=== PATIENT | female | born 1990 | race Caucasian/White ===

== ENCOUNTER 2019-07-03 18:16 | Emergency (ER) | payer OTHER ==
[2019-07-03 18:56] LABS: RAPID STREP SCREEN Negative (Negative)
--- NOTE | 2019-07-03 19:32 | ED Physician Documentation ---
History of Present Illness - Stated complaint Stated Complaint: FLU SX - Chief complaint Chief Complaint: Fever - History obtained from History obtained from: Patient - History of Present Illness Timing: Yesterday Pain level now: 8 Improved by: nothing Worsened by: no exacerbating factors - Additonal information Additional information: c/o fever (subjective; has not taken temperature), generalized headache, sore throat, [employer] cough since yesterday. Review of Systems Constitutional: reports: Fever (subjective), Chills, Myalgias, Sweats Throat: reports: Sore throat Respiratory: reports: Cough. denies: Dyspnea GI: reports: Reviewed and negative PD PAST MEDICAL HISTORY - Past Medical History Past Medical History: No - Past Surgical History Past Surgical History: No - Present Medications Home Medications: Ambulatory Orders Medication Instructions Recorded Confirmed Oseltamivir [Tamiflu] 75 mg PO BID #9 capsule 07/03/19 - Allergies Allergies/Adverse Reactions: Allergies Allergy/AdvReac Type Severity Reaction Status Date / Time No Known Drug Allergies Allergy Verified 07/03/19 18:58 - Social History Does the pt smoke?: No Smoking Status: Never smoker Does the pt drink ETOH?: No Does the pt have substance abuse?: No - Immunizations Immunizations are current?: Yes PD ED PE NORMAL - Vitals Vital signs reviewed: Yes - General General: Alert and oriented X 3, No acute distress, Well developed/nourished - HEENT HEENT: Moist mucous membranes, Other (mild posterior oropharyngeal erythema without exudate) - Neck Neck: Supple, no meningeal sign - Respiratory Respiratory: No respiratory distress, Clear bilaterally Results - Vitals Vitals: Vital Signs - 24 hr 07/03/19 18:28 Temperature 37.6 C H Heart Rate 104 H Respiratory 16 Rate Blood Pressure 106/70 O2 Saturation 97 Oxygen O2 Source Room air - Labs Labs: Laboratory Tests 07/03/19 07/03/19 18:34 18:34 Influenza A (Rapid) POSITIVE H Influenza B (Rapid) Negative Group A Strep Rapid Negative PD MEDICAL DECISION MAKING - ED course Complexity details: reviewed results, considered differential, d/w patient ED course: negative strep but positive flu A result. Discussed options for treatment, specifically Tamiflu. I explained the CDC criteria for patients who should be started on tamiflu due to increased risk of complications, and that she does not meet any of these criteria. I also explained that the medication is offered, though not specifically recommended, if symptoms started with 48 hours. She wishes to start tamiflu (symptoms started yesterday) Departure - Departure Disposition: 01 Home, Self Care Clinical Impression: Influenza A Condition: Good Instructions: ED Flu, Medication: Tamiflu (Oseltamivir) Prescriptions: Oseltamivir [Tamiflu] 75 mg PO BID #9 capsule Forms: Activity restrictions
[2019-07-03] MEDS ORDERED: OSELTAMIVIR 75 MG CAPSULE PO STA (19:45)
[2019-07-03 20:11] VITALS: BP 110/68
== END 2019-07-03 20:11 | disposition home or self-care (01) ==
LOC: ED 18:16
DX: J10.1 Influenza due to other identified influenza virus with other respiratory manifestations (principal)
CPT/HCPCS: 87070; 87077; 87275; 87276; 87430; 99283; A9270

== ENCOUNTER 2020-03-01 17:10 | Outpatient (CLI) | payer OTHER ==
[2020-03-01 18:31] LABS: BASOPHILS # (AUTO) 0.1 10^3/uL (0.0-0.1); BASOPHILS % (AUTO) 0.5 %; EOSINOPHILS # (AUTO) 0.1 10^3/uL (0.0-0.7); EOSINOPHILS % (AUTO) 0.7 %; HGB - HEMOGLOBIN 13.2 g/dL (12.0-16.0); LYMPHOCYTES # (AUTO) 3.2 10^3/uL (1.5-3.5); LYMPHOCYTES % (AUTO) 31.2 %; MEAN CORPUSCULAR HEMOGLOBIN 29.5 pg (27.0-31.0); MEAN CORPUSCULAR HGB CONC 32.8 g/dL (32.0-36.0); MEAN PLATELET VOLUME 9.9 fL (7.9-10.8); NEUTROPHILS # (AUTO) 5.9 10^3/uL (1.5-6.6); NEUTROPHILS % (AUTO) 57.3 %; PLT - PLATELET COUNT 369 10^3/uL (130-450); RED BLOOD COUNT 4.48 10^6/uL (4.20-5.40); RED CELL DISTRIBUTION WIDTH 12.2 % (12.0-15.0); WHITE BLOOD COUNT 10.3 x10^3/uL (4.8-10.8)
[2020-03-01 18:53] LABS: ALBUMIN 4.4 g/dL (3.2-5.5); ALBUMIN/GLOBULIN RATIO 1.3 (1.0-2.2); BILIRUBIN,TOTAL 0.2 mg/dL (0.2-1.0); CALCIUM 9.3 mg/dL (8.5-10.3); CREATININE 0.6 mg/dL (0.4-1.0); TOTAL PROTEIN 7.8 g/dL (6.7-8.2)
== END 2020-03-01 17:11 | disposition home or self-care (01) ==
LOC: LAB.WCP 17:10
PROVIDERS: ATTEND Nurse Practitioner Family
DX: R63.5 Abnormal weight gain (principal); R53.83 Other fatigue
CPT/HCPCS: 36415; 80053; 84443; 85025

== ENCOUNTER 2020-11-30 19:40 | Emergency (ER) | payer OTHER ==
[2020-11-30 19:58] VITALS: BP 122/86
--- NOTE | 2020-11-30 20:36 | ED Physician Documentation ---
History of Present Illness - Stated complaint Stated Complaint: LT BREAST PX/INJ - Chief complaint Chief Complaint: General - History obtained from History obtained from: Patient, Family - History of Present Illness Timing: Yesterday Pain level max: 3 Pain level now: 3 - Additonal information Additional information: Patient was moving a box at her house when it fell striking her in the left breast. She states that the left breast appears different to her now. Does have bilateral breast implants in place. Concerned about potential rupture. Minimal pain. No swelling. Nothing makes it better or worse The breast implant is a saline implant. Review of Systems Ten Systems: 10 systems reviewed and negative Constitutional: denies: Fever, Chills Nose: denies: Rhinorrhea / runny nose, Congestion GI: denies: Vomiting, Diarrhea Skin: denies: Rash Musculoskeletal: denies: Neck pain, Back pain Neurologic: denies: Headache PD PAST MEDICAL HISTORY - Past Medical History Past Medical History: No - Past Surgical History Past Surgical History: No - Present Medications Home Medications: Ambulatory Orders Medication Instructions Recorded Confirmed Oseltamivir [Tamiflu] 75 mg PO BID #9 capsule 07/03/19 - Allergies Allergies/Adverse Reactions: Allergies Allergy/AdvReac Type Severity Reaction Status Date / Time No Known Drug Allergies Allergy Verified 11/30/20 19:58 - Social History Does the pt smoke?: No Smoking Status: Never smoker Does the pt drink ETOH?: No Does the pt have substance abuse?: No - Immunizations Immunizations are current?: Yes PD ED PE NORMAL - Vitals Vital signs reviewed: Yes - General General: Alert and oriented X 3, No acute distress - HEENT HEENT: Moist mucous membranes - Neck Neck: Supple, no meningeal sign - Cardiac Cardiac: RRR - Respiratory Respiratory: No respiratory distress, Clear bilaterally - Derm Derm: Warm and dry - Neuro Neuro: Alert and oriented X 3 - Free text exam Free text exam: Mild asymmetry of the breast, right is slightly around her than the left. No skin changes. No dimpling. No redness. No bruising Results - Vitals Vitals: Vital Signs - 24 hr 11/30/20 11/30/20 19:54 20:07 Temperature 36 C L 36.2 C L Heart Rate 88 88 Respiratory 12 12 Rate Blood Pressure 122/86 H 122/86 H O2 Saturation 100 100 Oxygen O2 Source Room air - Rads (name of study) CT chest Radiology: Final report received, EMP read contemporaneously, See rad report (L breast implant rupture. no other acute abnormality.) PD MEDICAL DECISION MAKING - ED course Complexity details: reviewed results, re-evaluated patient, considered differential, d/w patient, d/w family ED course: Patient with a ruptured left breast implant. Saline implant. Had her original surgery in [facility]. Recommend that she follow-up with the plastic surgeon for removal of the implant sac and to discuss reimplantation of a new implant. Patient and family counseled regarding signs and symptoms for which I believe and urgent re-evaluation would be necessary. Patient with good understanding of and agreement to plan and is comfortable going home at this time This document was made in part using voice recognition software. While efforts are made to proofread this document, sound alike and grammatical errors may occur. Departure - Departure Disposition: 01 Home, Self Care Clinical Impression: Rupture of implant of left breast Qualifiers: Encounter type: initial encounter Qualified Code(s): T85.43XA - Leakage of breast prosthesis and implant, initial encounter Condition: Good Instructions: Breast Implants Care After Follow-Up: your,doctor in 1 week. [Other] Comments: You have ruptured your left breast implant. You will need to follow-up closely with a plastic surgeon to have this removed and a new implant implanted. Return if you worsen. There are several plastic surgeons that can do this work in [place]/ . You can also look in [place].
--- NOTE | 2020-11-30 22:04 | CT Report ---
PROCEDURE: CHEST WO INDICATIONS: L breast pain trauma to chest wall, hx implant TECHNIQUE: Noncontrast images were acquired from the pulmonary apices to the posterior costophrenic angles. Mul tiplanar MIP reformats were then acquired. For radiation dose reduction, the following was used: au tomated exposure control, adjustment of mA and/or kV according to patient size. COMPARISON: None FINDINGS: Image quality: Excellent. Lungs and pleura: No acute air space opacities. No pleural effusions or pneumothorax. Central and peripheral airways are patent and normal in caliber. Mediastinum: Heart size is normal. No pericardial effusion. No mediastinal adenopathy by size crit eria. Thoracic aorta and central pulmonary arteries are normal in size. Esophagus is normal in [place]. No hiatal hernia. Bones and chest wall: Bilateral saline breast implants are present. The left breast implant is ruptu red. The right breast implant is intact. No suspicious bony lesions. No vertebral body compression f ractures. No axillary or supraclavicular adenopathy by size criteria. The thyroid is normal in size and there are no incidental findings. Abdomen: Visualized upper abdominal solid organs and bowel loops appear normal in the absence of con trast. IMPRESSION: 1. Left breast implant rupture. 2. No other acute abnormality. Reviewed by: Rm Ayala on 11/30/2020 10:02 PM PDT Approved by: Rm Ayala on 11/30/2020 10:02 PM PDT Station ID: [id number]
== END 2020-11-30 22:08 | disposition home or self-care (01) ==
LOC: ED 19:40
DX: T85.43XA Leakage of breast prosthesis and implant, initial encounter (principal); W20.8XXA Other cause of strike by thrown, projected or falling object, initial encounter; Y93.E6 Activity, residential relocation
CPT/HCPCS: 99282; 99284